=== PATIENT | male | born 1970 | race Native Hawaiian/Other Pacific Islander ===

== ENCOUNTER 2018-04-10 11:17 | Outpatient (CLI) | payer BC, OTHER | END 2018-04-10 21:41 | disposition home or self-care (01) | LOC: RESP 11:17 | DX: Z01.818 Encounter for other preprocedural examination (principal) ==

== ENCOUNTER 2018-09-11 11:12 | Outpatient (CLI) | payer BC, OTHER ==
[2018-09-11 11:27] LABS: PLATELET COUNT 259 K/uL (142-355)
[2018-09-11 11:31] LABS: POTASSIUM 4.5 mmol/L (3.6-5.2)
== END 2018-09-11 22:12 | disposition home or self-care (01) ==
LOC: LAB 11:12
PROVIDERS: Orthopaedic Surgery
DX: T81.41XD Infection following a procedure, superficial incisional surgical site, subsequent encounter (principal); B95.62 Methicillin resistant Staphylococcus aureus infection as the cause of diseases classified elsewhere; Z79.2 Long term (current) use of antibiotics; Z45.2 Encounter for adjustment and management of vascular access device
CPT/HCPCS: 80053; 80202; 85027; 85651; 86140

== ENCOUNTER 2018-09-18 12:19 | Outpatient (CLI) | payer BC, OTHER ==
[2018-09-18 12:48] LABS: PLATELET COUNT 308 K/uL (142-355)
[2018-09-18 12:56] LABS: POTASSIUM 4.2 mmol/L (3.6-5.2)
== END 2018-09-18 19:16 | disposition home or self-care (01) ==
LOC: LAB 12:19
PROVIDERS: Orthopaedic Surgery
DX: A49.02 Methicillin resistant Staphylococcus aureus infection, unspecified site (principal); T81.41XD Infection following a procedure, superficial incisional surgical site, subsequent encounter; Z79.2 Long term (current) use of antibiotics
CPT/HCPCS: 80053; 80202; 85027; 85651; 86140

== ENCOUNTER 2018-09-25 11:42 | Outpatient (CLI) | payer BC, OTHER ==
[2018-09-25 12:10] LABS: PLATELET COUNT 350 K/uL (142-355)
[2018-09-25 13:28] LABS: POTASSIUM 4.4 mmol/L (3.6-5.2)
== END 2018-09-25 20:56 | disposition home or self-care (01) ==
LOC: LAB 11:42
PROVIDERS: Orthopaedic Surgery
DX: T81.41XD Infection following a procedure, superficial incisional surgical site, subsequent encounter (principal); Z79.2 Long term (current) use of antibiotics; A49.02 Methicillin resistant Staphylococcus aureus infection, unspecified site
CPT/HCPCS: 80053; 80202; 85027; 85651; 86140

== ENCOUNTER 2018-10-02 11:11 | Outpatient (CLI) | payer BC, OTHER ==
[2018-10-02 12:51] LABS: PLATELET COUNT 230 K/uL (142-355)
[2018-10-02 13:05] LABS: POTASSIUM 4.4 mmol/L (3.6-5.2)
== END 2018-10-02 19:43 | disposition home or self-care (01) ==
LOC: LAB 11:11
PROVIDERS: Orthopaedic Surgery
DX: T81.41XD Infection following a procedure, superficial incisional surgical site, subsequent encounter (principal); A49.02 Methicillin resistant Staphylococcus aureus infection, unspecified site; Z79.2 Long term (current) use of antibiotics
CPT/HCPCS: 80053; 80202; 85027; 85651; 86140

== ENCOUNTER 2018-10-03 09:28 | Outpatient (CLI) | payer BC, OTHER | END 2018-10-03 19:15 | disposition home or self-care (01) | LOC: LAB 09:28 | DX: T81.41XD Infection following a procedure, superficial incisional surgical site, subsequent encounter (principal); A49.02 Methicillin resistant Staphylococcus aureus infection, unspecified site; Z79.2 Long term (current) use of antibiotics | CPT/HCPCS: 80202 ==

== ENCOUNTER 2018-10-09 10:16 | Outpatient (CLI) | payer BC, OTHER ==
[2018-10-09 10:59] LABS: PLATELET COUNT 244 K/uL (142-355)
[2018-10-09 11:15] LABS: POTASSIUM 4.2 mmol/L (3.6-5.2)
== END 2018-10-09 19:58 | disposition home or self-care (01) ==
LOC: LAB 10:16
PROVIDERS: Orthopaedic Surgery
DX: T81.41XD Infection following a procedure, superficial incisional surgical site, subsequent encounter (principal); B95.62 Methicillin resistant Staphylococcus aureus infection as the cause of diseases classified elsewhere; Z79.2 Long term (current) use of antibiotics; Z45.2 Encounter for adjustment and management of vascular access device
CPT/HCPCS: 80053; 80202; 85027; 85651; 86140

== ENCOUNTER 2018-10-16 10:36 | Outpatient (CLI) | payer BC, OTHER ==
[2018-10-16 11:19] LABS: PLATELET COUNT 215 K/uL (142-355)
[2018-10-16 11:43] LABS: POTASSIUM 4.4 mmol/L (3.6-5.2)
== END 2018-10-16 20:01 | disposition home or self-care (01) ==
LOC: LAB 10:36
PROVIDERS: Orthopaedic Surgery
DX: T81.41XD Infection following a procedure, superficial incisional surgical site, subsequent encounter (principal); A49.02 Methicillin resistant Staphylococcus aureus infection, unspecified site; Z79.2 Long term (current) use of antibiotics
CPT/HCPCS: 80053; 80202; 85027; 85651; 86140

== ENCOUNTER 2020-04-02 09:28 | Outpatient (CLI) | payer BC, OTHER | END 2020-04-02 20:29 | disposition home or self-care (01) | LOC: US 09:28 | DX: R60.0 Localized edema (principal); G57.83 Other specified mononeuropathies of bilateral lower limbs; E78.49 Other hyperlipidemia; R73.9 Hyperglycemia, unspecified ==

== ENCOUNTER 2021-02-08 20:56 | Emergency (ER) | payer BC, OTHER | END 2021-02-08 23:36 | disposition home or self-care (01) | LOC: ED 20:56 | DX: S91.331A Puncture wound without foreign body, right foot, initial encounter (principal); W45.0XXA Nail entering through skin, initial encounter; Y92.89 Other specified places as the place of occurrence of the external cause | CPT/HCPCS: 90471; 90715; 99283 ==

== ENCOUNTER 2021-04-21 10:02 | Emergency (ER) | payer BC, OTHER ==
[~2021-04-21] VITALS: Ht 177.8 cm; Wt 104.3 kg
[2021-04-21 10:49] LABS: PLATELET COUNT 214 K/uL (142-355)
[2021-04-21 11:10] LABS: POTASSIUM 4.7 mmol/L (3.6-5.2)
[2021-04-21 12:23] VITALS: BP 123/77; TEMP 98.1
== END 2021-04-21 12:33 | disposition home or self-care (01) ==
LOC: ED 10:02
PROVIDERS: Emergency Medicine Emergency Medical Services
DX: L03.116 Cellulitis of left lower limb (principal); S90.862A Insect bite (nonvenomous), left foot, initial encounter; W57.XXXA Bitten or stung by nonvenomous insect and other nonvenomous arthropods, initial encounter; Y92.89 Other specified places as the place of occurrence of the external cause
CPT/HCPCS: 36415; 80053; 85027; 96365; 99284; J3490

== ENCOUNTER 2021-05-10 07:53 | Emergency (ER) | payer BC, OTHER ==
[~2021-05-10] VITALS: Ht 177.8 cm; Wt 104.3 kg
[2021-05-10 09:08] LABS: PLATELET COUNT 193 K/uL (142-355)
[2021-05-10 09:15] LABS: POTASSIUM 4.3 mmol/L (3.6-5.2)
[2021-05-10 10:30] VITALS: BP 111/66; TEMP 99
== END 2021-05-10 10:30 | disposition home or self-care (01) ==
LOC: ED 07:53
PROVIDERS: Hospitalist
DX: J06.9 Acute upper respiratory infection, unspecified (principal); R50.9 Fever, unspecified; Z20.822 Contact with and (suspected) exposure to COVID-19
CPT/HCPCS: 80053; 85027; 87635; 87651; 96372; 99283; J0696; J1100; U0003

== ENCOUNTER 2021-11-06 10:10 | Outpatient (CLI) | payer BC, OTHER | END 2021-11-06 19:35 | disposition home or self-care (01) | LOC: RAD 10:10 | PROVIDERS: ATTEND Nurse Practitioner Family | DX: M54.89 Other dorsalgia (principal) ==

== ENCOUNTER 2022-01-04 10:22 | Outpatient (CLI) | payer OTHER, BC | END 2022-01-04 18:52 | disposition home or self-care (01) | LOC: RAD 10:22 | PROVIDERS: ATTEND Nurse Practitioner Family | DX: J40 Bronchitis, not specified as acute or chronic (principal); M06.4 Inflammatory polyarthropathy; M35.00 Sjogren syndrome, unspecified; Z68.35 Body mass index [BMI] 35.0-35.9, adult ==